=== PATIENT | male | born 1995 | race Caucasian/White ===

== ENCOUNTER 2017-07-18 17:34 | Emergency (ER) | payer OTHER ==
[2017-07-18 18:02] VITALS: BP 109/59
--- NOTE | 2017-07-18 18:21 | UC ---
Eye Complaint HPI - HPI Summary HPI Summary: Pt c/o left eye redness and purulent discharge X 1 day. Also c/o right lower inner eye lid swelling, tenderness and mild erythema that began 2-3 days ago. Pt also reports that an insect flew in his right eye yesterday but was able to remove it and denies pain in right eye at time of exam. - History of Current Complaint Chief Complaint: UCEye Stated Complaint: LEFT EYE COMPLAINT Time Seen by Provider: 07/18/17 18:17 Hx Obtained From: Patient Onset/Duration: Gradual Onset, Lasting Days, Still Present Timing: Constant Severity Initially: Mild Severity Currently: Mild Pain Intensity: 3 Character: Dull Associated Signs And Symptoms: Positive: Drainage (Purulent) - left eye, Swelling - right lower, inner lid - Risk Factors Penetrating Injury Risk Factor: Negative Acute Glaucoma Risk Factors: Negative Optic Artery Occlusion Risk Factors: Negative - Allergies/Home Medications Allergies/Adverse Reactions: Allergies Allergy/AdvReac Type Severity Reaction Status Date / Time No Known Allergies Allergy Verified 07/18/17 18:02 PMH/Surg Hx/FS Hx/Imm Hx Previously Healthy: Yes - Surgical History Surgical History: None - Family History Known Family History: Positive: Cardiac Disease - Social History Occupation: Employed Full-time Lives: With Family Alcohol Use: Rare Substance Use Type: None Smoking Status (MU): Never Smoked Tobacco Have You Smoked in the Last Year: No - Immunization History Most Recent Tetanus Shot: unknown Review of Systems Constitutional: Negative Skin: Negative Eyes: Blurred Vision, Drainage, Eye Redness ENT: Negative Respiratory: Negative Cardiovascular: Negative Gastrointestinal: Negative Genitourinary: Negative Motor: Negative Neurovascular: Negative Musculoskeletal: Negative Neurological: Negative Psychological: Negative Is Patient Immunocompromised?: No All Other Systems Reviewed And Are Negative: Yes Physical Exam Triage Information Reviewed: Yes Appearance: Well-Appearing Vital Signs: Initial Vital Signs Temp 99.2 F 07/18/17 17:50 Pulse 72 07/18/17 17:50 Resp 18 07/18/17 17:50 BP 109/59 07/18/17 17:50 Pulse Ox 100 07/18/17 17:50 Vital Signs Reviewed: Yes Eye Exam: Other Eyes: Positive: Conjunctiva Inflamed - left eye, Discharge - left eye, Other: - right lower, inner lid swelling and mild erythema ENT Exam: Normal Neck exam: Normal Respiratory: Positive: No respiratory distress Musculoskeletal Exam: Normal Neurological Exam: Normal Psychological Exam: Normal Skin Exam: Normal Eye Complaint Course/Dx - Differential Dx/Diagnosis Differential Diagnosis/HQI/PQRI: Conjunctivitis, Other - stye Provider Diagnoses: conjunctivitis left eye. stye right eye Discharge - Sign-Out/Discharge Documenting (check all that apply): Discharge/Admit/Transfer - Discharge Plan Condition: Stable Disposition: HOME Prescriptions: Polymyx/Trimethoprim OPTH* [Polytrim OPHTH*] 2 drop BOTH EYES Q8H #1 btl Patient Education Materials: Stye (ED), Conjunctivitis (ED) Referrals: [facility] [place] [facility] REFERRAL [Outside] No Primary Care Phys,NOPCP [Primary Care Provider] - - Billing Disposition and Condition Condition: STABLE Disposition: HOME
== END 2017-07-18 18:30 | disposition home or self-care (01) ==
LOC: UCCORT 17:34
DX: H10.9 Unspecified conjunctivitis (principal); H00.022 Hordeolum internum right lower eyelid
CPT/HCPCS: 99202; G0463